=== PATIENT | female | born 1960 | race Caucasian/White ===

== ENCOUNTER → 2016-10-18 | Outpatient (CLI) | payer BC ==
[2016-10-18 07:19] LABS: ABSOLUTE BASOPHILS # (AUTO) 0.1 10^3/uL (0.0-0.2); ABSOLUTE EOSINOPHILS # (AUTO) 0.2 10^3/uL (0.0-0.6); ABSOLUTE LYMPHOCYTES (AUTO) 1.5 10^3/uL (0.5-4.7); ABSOLUTE MONOCYTES (AUTO) 0.4 10^3/uL (0.1-1.4); ABSOLUTE NEUT (AUTO) 2.6 10^3/uL (1.7-8.2); EOSINOPHILS % (AUTO) 3.8 % (0-6); HEMATOCRIT 40.3 % (36.0-47.0); HEMOGLOBIN 14.1 g/dL (12.0-15.5); LYMPHOCYTES % (AUTO) 31.6 % (13-45); MEAN CORPUSCULAR HEMOGLOBIN 33.6 pg (27.0-33.4); MEAN CORPUSCULAR HGB CONC 35.1 g/dL (32.0-36.0); MEAN CORPUSCULAR VOLUME 96 fl (80-97); MONOCYTES % (AUTO) 8.5 % (3-13); RED CELL DISTRIBUTION WIDTH 12.1 % (11.5-14.0); SEGMENTED NEUTROPHILS % (AUTO) 54.1 % (42-78); WHITE BLOOD COUNT 4.7 10^3/uL (4.0-10.5)
[2016-10-18 07:42] LABS: ALANINE AMINOTRANSFERASE 39 U/L (9-52); ALBUMIN 4.5 g/dL (3.5-5.0); ALKALINE PHOSPHATASE 110 U/L (38-126); ANION GAP 12 (5-19); ASPARTATE AMINO TRANSFERASE 30 U/L (14-36); BILIRUBIN,DIRECT 0.2 mg/dL (0.0-0.4); BILIRUBIN,TOTAL 0.7 mg/dL (0.2-1.3); BLOOD UREA NITROGEN 17 mg/dL (7-20); CALCIUM 9.4 mg/dL (8.4-10.2); CARBON DIOXIDE 28 mmol/L (22-30); CHLORIDE 103 mmol/L (98-107); CHOLESTEROL 176.67 mg/dL (0-200); CREATININE RESULT 0.77 mg/dL (0.52-1.25); Direct HDL 73 mg/dL (>40); GLUCOSE 88 mg/dL (75-110); POTASSIUM 4.1 mmol/L (3.6-5.0); SODIUM 142.6 mmol/L (137-145); TOTAL PROTEIN 7.6 g/dL (6.3-8.2); TRIGLYCERIDES 70 mg/dL (<150)
[2016-10-18 07:54] LABS: DIRECT LDL 83 mg/dL (<100)
== END ==
LOC: LAB 07:08
PROVIDERS: ATTEND Physician Assistant
DX: Z00.00 Encounter for general adult medical examination without abnormal findings (principal)
CPT/HCPCS: 36415; 80053; 80061; 85025

== ENCOUNTER 2017-04-26 13:55 | Emergency (ER) | payer BC ==
--- NOTE | 2017-04-26 15:22 | ER Document Report ---
ED Medical Screen (RME) - General Chief Complaint: Abdominal Pain Stated Complaint: ABDOMINAL PAIN Time Seen by Provider: 04/26/17 15:15 Notes: Patient is a 57 year old female who presents with epigastric burning, dull ache that is constant radiating across her upper abdomen. Admits to nausea on monday. Improved after two bowels movements on Monday, this happened twice. Complete relief. States it gets worse after eating still has her gall bladder I have greeted and performed a rapid initial assessment of this patient. A comprehensive ED assessment and evaluation of the patient, analysis of test results and completion of the medical decision making process will be conducted by additional ED providers. TRAVEL OUTSIDE OF THE [place] IN LAST 30 DAYS: No - Related Data Allergies/Adverse Reactions: meperidine HCl [From Demerol] Allergy (Mild, Verified 04/26/17 15:15) VOMITING Past Medical History - Past Medical History Cardiac Medical History: Denies: Hx Heart Attack, Hx Hypertension Pulmonary Medical History: Denies: Hx Asthma Neurological Medical History: Denies: Hx Cerebrovascular Accident, Hx Seizures GI Medical History: Denies: Hx Hepatitis, Hx Hiatal Hernia, Hx Ulcer Infectious Medical History: Denies: Hx Hepatitis Past Surgical History: Denies: Hx Hysterectomy, Hx Mastectomy, Hx Open Heart Surgery, Hx Pacemaker Physical Exam - Vital signs Vitals: Temp Pulse Resp BP Pulse Ox 98.8 F 98 18 140/79 H 98 04/26/17 14:04 04/26/17 14:04 04/26/17 14:04 04/26/17 14:04 04/26/17 14:04 - Notes Notes: PHYSICAL EXAM GENERAL: Alert, interacts well. HEAD: Normocephalic, atraumatic. LUNGS: Clear to auscultation bilaterally, no wheezes, rales, or rhonchi. No respiratory distress. HEART: Regular rate and rhythm. No murmurs, gallops, or rubs. ABDOMEN: Soft, nondistended, epigastric tenderness. No guarding, rebound, or rigidity.. Bowel sounds present in all 4 quadrants. NEUROLOGICAL: Alert and oriented x4. Normal speech. PSYCH: Normal affect, normal mood. SKIN: Warm, dry, normal turgor. No rashes or lesions noted. Course - Vital Signs Vital signs: Temp Pulse Resp BP Pulse Ox 98.8 F 98 18 140/79 H 98 04/26/17 14:04 04/26/17 14:04 04/26/17 14:04 04/26/17 14:04 04/26/17 14:04
[2017-04-26] MEDS ORDERED: LIDOCAINE 2% VISCOUS SOLN 20 ML UDCUP PO ONE (15:23)
[2017-04-26] MEDS ORDERED: MAG HYDROX/AL HYDROX/SIMETH SUSP 30 ML UDCUP PO ONE (15:23)
[2017-04-26] MEDS ORDERED: METOCLOPRAMIDE HCL ORAL SOLN 10 MG/10 ML UDCUP PO ONE (15:23)
[2017-04-26 15:45] LABS: ABSOLUTE BASOPHILS # (AUTO) 0.1 10^3/uL (0.0-0.2); ABSOLUTE EOSINOPHILS # (AUTO) 0.2 10^3/uL (0.0-0.6); ABSOLUTE LYMPHOCYTES (AUTO) 1.1 10^3/uL (0.5-4.7); ABSOLUTE MONOCYTES (AUTO) 0.6 10^3/uL (0.1-1.4); ABSOLUTE NEUT (AUTO) 3.2 10^3/uL (1.7-8.2); BASOPHILS % (AUTO) 1.1 % (0-2); HEMOGLOBIN 13.3 g/dL (12.0-15.5); LYMPHOCYTES % (AUTO) 22.2 % (13-45); MEAN CORPUSCULAR HGB CONC 33.2 g/dL (32.0-36.0); MEAN CORPUSCULAR VOLUME 96 fl (80-97); MONOCYTES % (AUTO) 11.1 % (3-13); PLATELET COUNT 227 10^3/uL (150-450); RED BLOOD COUNT 4.16 10^6/uL (3.72-5.28); RED CELL DISTRIBUTION WIDTH 12.1 % (11.5-14.0); SEGMENTED NEUTROPHILS % (AUTO) 62.6 % (42-78); TOTAL CELLS COUNTED % (AUTO) 100 %; WHITE BLOOD COUNT 5.2 10^3/uL (4.0-10.5)
[2017-04-26 15:50] LABS: APPEARANCE,URINE CLEAR; BILIRUBIN,URINE NEGATIVE (NEGATIVE); COLOR,URINE YELLOW; GLUCOSE, URINE NEGATIVE (NEGATIVE); KETONES,URINE NEGATIVE (NEGATIVE); LEUKOCYTE ESTERASE,URINE NEGATIVE (NEGATIVE); NITRITE,URINE NEGATIVE (NEGATIVE); PROTEIN,URINE NEGATIVE (NEGATIVE); UROBILINOGEN,URINE NEGATIVE mg/dL (<2.0)
[2017-04-26 16:06] LABS: ALANINE AMINOTRANSFERASE 341 U/L (9-52); ALBUMIN 4.6 g/dL (3.5-5.0); ALKALINE PHOSPHATASE 159 U/L (38-126); ANION GAP 13 (5-19); ASPARTATE AMINO TRANSFERASE 114 U/L (14-36); BILIRUBIN,DIRECT 0.1 mg/dL (0.0-0.4); BILIRUBIN,TOTAL 0.4 mg/dL (0.2-1.3); BLOOD UREA NITROGEN 17 mg/dL (7-20); CARBON DIOXIDE 29 mmol/L (22-30); CHLORIDE 102 mmol/L (98-107); GLUCOSE 112 mg/dL (75-110); LIPASE 142.5 U/L (23-300); POTASSIUM 4.2 mmol/L (3.6-5.0); SODIUM 144.1 mmol/L (137-145); TOTAL PROTEIN 7.2 g/dL (6.3-8.2)
--- NOTE | 2017-04-26 17:28 | RADIOLOGY REPORT (SQ) ---
EXAM DESCRIPTION: U/S ABDOMEN LIMITED W/O DOP COMPLETED DATE/TIME: 04/26/2017 5:14 pm REASON FOR STUDY: RUQ pain, elevated LFTS COMPARISON: None. TECHNIQUE: Dynamic and static grayscale images acquired of the abdomen and recorded on PACS. Additio nal selected color Doppler and spectral images recorded. LIMITATIONS: None. FINDINGS: PANCREAS: A complex mass is identified at the level of the pancreatic head measuring 2.4 x 2.8 x 2.7 cm in diameters. The possibility of a pancreatic neoplasm cannot be excluded. CT may be of value for further evaluation. LIVER: No masses. Echotexture normal. LIVER VASCULATURE: Normal blood flow is identified in the portal vein. GALLBLADDER: No stones. Normal wall thickness. No pericholecystic fluid. ULTRASOUND-DETECTED CROCKETT'S SIGN: Negative. INTRAHEPATIC DUCTS AND COMMON DUCT: No dilated intrahepatic bile ducts are identified. The common bi le duct is at the upper limits of normal in size. AORTA: No aneurysm. RIGHT KIDNEY: Normal size. Normal echogenicity. No solid or suspicious masses. No hydronephrosis. No calcifications. PERITONEAL AND RIGHT PLEURAL SPACE: No ascites or effusions. OTHER: No other significant findings. IMPRESSION: Complex mass is identified at the level the pancreatic head as noted above. The possibi lity of a pancreatic neoplasm cannot be excluded. CT may be of value for further evaluation. Other findings as noted above TECHNICAL DOCUMENTATION: JOB ID: [id number] [employer]- All Rights Reserved
--- NOTE | 2017-04-26 18:52 | RADIOLOGY REPORT (SQ) ---
EXAM DESCRIPTION: CT ABD/PELVIS WITH IV ONLY COMPLETED DATE/TIME: 04/26/2017 6:36 pm REASON FOR STUDY: possible pancreatic head mass COMPARISON: Abdominal ultrasound dated 04/26/2017 TECHNIQUE: CT scan of the abdomen and pelvis performed using helical scanning technique with dynamic intravenous contrast injection. No oral contrast. Images reviewed with lung, soft tissue, and bone windows. Reconstructed coronal and sagittal MPR images reviewed. Delayed images for evaluation of the urinary system also acquired. All images stored on PACS. All CT scanners at this facility use dose modulation, iterative reconstruction, and/or weight based d osing when appropriate to reduce radiation dose to as low as reasonably achievable (ALARA). [facility]: Dose Right [facility]: CareDose [facility]: Dose Right [facility]: Teradose 4D [facility]: Linkfluence CONTRAST TYPE AND DOSE: contrast/concentration: Isovue 370.00 mg/ml; Total Contrast Delivered: 58.0 ml; Total Saline Delivered: 40.0 ml RENAL FUNCTION: Creatinine 0.72 RADIATION DOSE: CT Rad equipment meets quality standard of care and radiation dose reduction techniq ues were employed. CTDIvol: 4.8 - 5.2 mGy. DLP: 473 mGy-cm.. LIMITATIONS: None. FINDINGS: LOWER CHEST: No significant findings. No nodules or infiltrates. LIVER: Normal size. Somewhat ill-defined relatively low density mass is identified in the right lobe of the liver inferiorly measuring 4.3 x 2.5 cm in diameter suspicious for metastatic disease. Eft d ilated intrahepatic bile ducts are identified and there is dilatation of the common bile duct. SPLEEN: Normal size. No focal lesions. PANCREAS: A relative low density mass is identified in the pancreatic head measuring 2.5 x 3.0 cm in diameter suspicious for a pancreatic neoplasm. There is loss of the adjacent peripancreatic fat plan es. No significant calcifications. No adjacent inflammation or peripancreatic fluid collections. Th ere is some prominence of the pancreatic duct in the pancreatic body and tail. GALLBLADDER: No identified stones by CT criteria. There is some distention of the gallbladder. No i nflammatory changes to suggest cholecystitis. ADRENAL GLANDS: No significant masses or asymmetry. RIGHT KIDNEY AND URETER: No solid masses. No significant calcifications. No hydronephrosis or hyd roureter. LEFT KIDNEY AND URETER: No solid masses. No significant calcifications. No hydronephrosis or hydr oureter. AORTA AND VESSELS: No aneurysm. No dissection. Renal arteries, SMA, celiac without stenosis. RETROPERITONEUM: No retroperitoneal adenopathy, hemorrhage or masses. BOWEL AND PERITONEAL CAVITY: No masses or inflammatory changes. No free fluid or peritoneal masses. APPENDIX: Not identified PELVIS: No mass. No free fluid. Normal bladder. ABDOMINAL WALL: No masses. No hernias. BONES: No significant or acute findings. OTHER: No other significant finding. IMPRESSION: Pancreatic head mass suspicious for a pancreatic neoplasm. Somewhat ill-defined relativ e low density mass in the right lobe of the liver suspicious for metastatic disease. Dilated intrahe patic bile ducts. There is some dilatation of the common bile duct as well as distention of the gall bladder. Other findings as noted above TECHNICAL DOCUMENTATION: JOB ID: [id number] Quality ID # [id number]: Final reports with documentation of one or more dose reduction techniques (e.g., Au tomated exposure control, adjustment of the mA and/or kV according to patient size, use of iterative reconstruction technique) 2010 [employer]- All Rights Reserved
--- NOTE | 2017-04-26 20:06 | ER Document Report ---
ED General - General Chief Complaint: Abdominal Pain Stated Complaint: ABDOMINAL PAIN Time Seen by Provider: 04/26/17 15:15 TRAVEL OUTSIDE OF THE [place] IN LAST 30 DAYS: No - HPI Patient complains to provider of: Abdominal pain Onset: Other - 3 Weeks ago Associated symptoms: None Exacerbated by: Denies Relieved by: Denies Similar symptoms previously: No Recently seen / treated by doctor: No Notes: She states she has had dull abdominal pain in the midsection of the abdomen for 3 weeks. She states that it has been intermittent and associated with nausea but no vomiting. Patient denies any acute weight change. She states she has had 5 loose stools in the last 5 hours. History of abdominal surgeries. - Related Data Allergies/Adverse Reactions: meperidine HCl [From Demerol] Allergy (Mild, Verified 04/26/17 15:15) VOMITING Past Medical History - General Information source: Patient - Social History Smoking Status: Never Smoker Chew tobacco use (# tins/day): No Frequency of alcohol use: Social Drug Abuse: None Lives with: Family, Spouse/Significant other Family History: Reviewed & Not Pertinent Patient has suicidal ideation: No Patient has homicidal ideation: No - Past Medical History Cardiac Medical History: Reports: None Denies: Hx Heart Attack, Hx Hypertension Pulmonary Medical History: Denies: Hx Asthma Neurological Medical History: Denies: Hx Cerebrovascular Accident, Hx Seizures Endocrine Medical History: Reports: None Renal/ Medical History: Reports: None. Denies: Hx Peritoneal Dialysis Malignancy Medical History: Reports: None GI Medical History: Reports: None. Denies: Hx Hepatitis, Hx Hiatal Hernia, Hx Ulcer Musculoskeltal Medical History: Reports None Psychiatric Medical History: Reports: None Traumatic Medical History: Reports: None Infectious Medical History: Reports: None. Denies: Hx Hepatitis Past Surgical History: Reports: None. Denies: Hx Hysterectomy, Hx Mastectomy, Hx Open Heart Surgery, Hx Pacemaker Review of Systems - Review of Systems Constitutional: No symptoms reported EENT: No symptoms reported Cardiovascular: No symptoms reported Respiratory: No symptoms reported Gastrointestinal: See HPI Genitourinary: No symptoms reported Female Genitourinary: No symptoms reported Musculoskeletal: No symptoms reported Skin: No symptoms reported Hematologic/Lymphatic: No symptoms reported Neurological/Psychological: No symptoms reported Physical Exam - Vital signs Vitals: Temp Pulse Resp BP Pulse Ox 98.8 F 98 18 140/79 H 98 04/26/17 14:04 04/26/17 14:04 04/26/17 14:04 04/26/17 14:04 04/26/17 14:04 - Notes Notes: PHYSICAL EXAMINATION: GENERAL: Well-appearing, well-nourished and in no acute distress. HEAD: Atraumatic, normocephalic. EYES: Pupils equal round and reactive to light, extraocular movements intact, conjunctiva are normal. ENT: Nares patent, oropharynx clear without exudates. Moist mucous membranes. NECK: Normal range of motion, supple without lymphadenopathy LUNGS: Breath sounds clear to auscultation bilaterally and equal. No wheezes rales or rhonchi. HEART: Regular rate and rhythm without murmurs ABDOMEN: Soft, nontender, nondistended abdomen. No guarding, no rebound. No masses appreciated. Female : deferred Musculoskeletal: Normal range of motion, no pitting or edema. No cyanosis. NEUROLOGICAL: Cranial nerves grossly intact. Normal speech, normal gait. Normal sensory, motor exams PSYCH: Normal mood, normal affect. SKIN: Warm, Dry, normal turgor, no rashes or lesions noted. Course - Re-evaluation Re-evalutation: 04/26/17 20:01 Did do an incidental with the patient. I went over the findings of the ultrasound and the CAT scan with her. I did tell her that she will need follow- up with the multiple different physicians. I did try and [facility] but they were not able to be reached. There was an answering machine only. She did ask me to call her Jalen and I did. I did go over the results again with him. I told him that the patient does have a mass at her pancreatic head and this could be consistent with cancer although I am not definitively sure. I told him that he needed to follow -up with the primary medical doctor tomorrow as well as gastroenterology and surgery. I did tell the patient and her at their asking that going to you and see would be reasonable. stated that perhaps he will go to [place]. I did tell him that the choices there is. Copies of CT and ultrasound were given to the patient as well as the lab results. 04/26/17 20:17 Go back in the room and spent some extra time with the patient. I told her that I called her primary medical doctor but they did not answer. I stated I call first thing in the morning. I did give her a week off from work so she get things started. Did state her is preop tomorrow for arthroscopic knee surgery next week by Dr. Reese. 04/28/17 00:38 Abdomen Ultrasound 04/26/17 16:20 IMPRESSION: Complex mass is identified at the level the pancreatic head as noted above. The possibility of a pancreatic neoplasm cannot be excluded. CT may be of value for further evaluation. Other findings as noted above Abdomen/Pelvis CT 04/26/17 17:38 IMPRESSION: Pancreatic head mass suspicious for a pancreatic neoplasm. Somewhat ill-defined relative low density mass in the right lobe of the liver suspicious for metastatic disease. Dilated intrahepatic bile ducts. There is some dilatation of the common bile duct as well as distention of the gallbladder. Other findings as noted above 04/28/17 00:38 I did call the patient on April 27 at approximately 1145. I spoke with her Jalen. He stated that they did have an appointment with GI Dr. Saenz 2 PM - Vital Signs Vital signs: Temp Pulse Resp BP Pulse Ox 98.0 F 98 17 145/79 H 99 04/26/17 20:05 04/26/17 20:05 04/26/17 20:05 04/26/17 20:05 04/26/17 20:05 - Laboratory Result Diagrams: 04/26/17 15:30 04/26/17 15:30 Laboratory results interpreted by me: 04/26/17 04/26/17 15:30 15:30 Glucose 112 H AST 114 H ALT 341 H Alkaline Phosphatase 159 H Urine Ascorbic Acid 40 H Discharge - Discharge Clinical Impression: Pancreatic mass Condition: Serious Disposition: HOME, SELF-CARE Instructions: Growth or Mass, Pending Workup ([facility]) Additional Instructions: Follow up with your physician tomorrow for further care or return to the ED IMMEDIATELY if symptoms worsen or new concerns occur. If you cannot afford to follow up with your primary care physician a list of low cost clinics have been provided at the end of your discharge papers as well. Please call your primary medical doctor first thing in the morning for follow- up tomorrow. Prescriptions: Ondansetron [Zofran Odt 4 mg Tablet] 1 - 2 tab PO Q4H PRN #15 tab.rapdis PRN Reason: For Nausea/Vomiting Forms: Return to Work
[2017-04-26 20:12] VITALS: BP 145/79
== END 2017-04-26 20:26 | disposition home or self-care (01) ==
LOC: ER 13:55
DX: K86.9 Disease of pancreas, unspecified (principal); R10.13 Epigastric pain; R11.0 Nausea; R19.7 Diarrhea, unspecified
CPT/HCPCS: 99284; 36415; 83690; 85025; 80053; 81001; 76705; 74177; J3490

== ENCOUNTER → 2017-05-02 | Outpatient (CLI) | payer BC ==
--- NOTE | 2017-05-03 10:21 | RADIOLOGY REPORT (SQ) ---
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 RADIONUCLIDE AND DOSE: 11.7 mCi F18 FDG The route of agent administration: Intravenous FASTING BLOOD SUGAR: 96 mg/dl CONTRAST TYPE AND DOSE: No CT contrast given. TECHNIQUE: Blood glucose level was verified. Above dose of FDG was injected intravenously. 2-D seg mented attenuation correction images were obtained from the base of the skull to the midthighs. Nonc ontrast CT images were obtained for attenuation correction and fusion with emission images. CT image s were performed without oral or intravenous contrast and are not sensitive for parenchymal lesions. A series of overlapping emission PET images were obtained. [facility] by the radiologist. Images stored on PACS. LIMITATIONS: None. FINDINGS: HEAD AND NECK: No areas of abnormal metabolic activity in the soft tissues of the head and neck. CHEST: No areas of abnormal metabolic activity in the chest. ABDOMEN AND PELVIS: Hypermetabolic pancreatic head mass measuring about 7.1 SUV. Hypermetabolic segm ent 5 liver lesion measures 8.1 SUV. PROXIMAL LOWER EXTREMITIES: No areas of abnormal metabolic activity in the soft tissues of the lower extremities. BONES: No abnormal metabolic activity in the visualized skeleton. ADDITIONAL CT FINDINGS: See recent CT abdomen pelvis. No additional CT findings in the chest. OTHER: No other significant findings. IMPRESSION: Hypermetabolic pancreatic head mass. Hypermetabolic liver metastasis. TECHNICAL DOCUMENTATION: JOB ID: [id number] [employer]- All Rights Reserved
== END ==
LOC: RAD 18:04
PROVIDERS: ATTEND Internal Medicine
DX: C25.0 Malignant neoplasm of head of pancreas (principal); C78.7 Secondary malignant neoplasm of liver and intrahepatic bile duct
CPT/HCPCS: 78815; A9552

== ENCOUNTER 2017-05-04 08:04 | Day surgery (SDC) | payer BC ==
[2017-05-04 09:33] LABS: HEMATOCRIT 40.6 % (36.0-47.0); HEMOGLOBIN 13.7 g/dL (12.0-15.5); MEAN CORPUSCULAR HEMOGLOBIN 32.7 pg (27.0-33.4); MEAN CORPUSCULAR HGB CONC 33.9 g/dL (32.0-36.0); MEAN CORPUSCULAR VOLUME 97 fl (80-97); PLATELET COUNT 207 10^3/uL (150-450); RED CELL DISTRIBUTION WIDTH 12.1 % (11.5-14.0); WHITE BLOOD COUNT 5.7 10^3/uL (4.0-10.5)
[2017-05-04 09:37] LABS: INTERNATIONAL RATION (INR) 0.92; PARTIAL THROMBOPLASTIN TIME 30.6 SEC (23.5-35.8)
[2017-05-04 09:53] LABS: BLOOD UREA NITROGEN 16 mg/dL (7-20)
[2017-05-04] MEDS ORDERED: MIDAZOLAM 2 MG/2 ML INJ ONE (11:29)
[2017-05-04] MEDS ORDERED: FENTANYL CITRATE INJ/PF 100 MCG/2 ML AMPUL ONE (11:29)
[2017-05-04] MEDS ORDERED: LIDOCAINE 1% INJ-PF (10 MG/ML) 30 ML SDV ONE (11:36)
--- NOTE | 2017-05-04 12:52 | RADIOLOGY REPORT (SQ) ---
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 TECHNIQUE: After obtaining informed consent, the patient was brought to the CT suite and was placed supine on the CT gurney. The patient was prepped and draped in the usual sterile fashion . Axial petra ges were obtained for targeting of thesegment 5 lesion. An appropriate access site was selected. IV s edation was administered and physician direction by the registered nurse using 1.5 milligrams of Vers ed and 75 micrograms of fentanyl. Physiologic monitoring was provided before, during, and after sedat ion. The total sedation time was 54 minutes. Documentation face to face time, the performing proceduralist, spent monitoring the patient: 5minutes . Noncontrasted CT of the liver was performed to localize an approach for the right liver biopsy. A p ercutaneous site was marked. Time out was performed. After skin prep and local lidocaine for skin and deep tissue anesthesia, a coaxial biopsy needle sys tem was used to obtain several cores of tissue from the segment 5 lesion in the liver. These were joiner bmitted to the lab in formalin. Biopsy tract was embolized with a Gelfoam plug. No immediate postpr ocedure complications. Total of [address] fluoro was used. All CT scanners at this facility use dose modulation, iterative reconstruction, and/or weight based d osing when appropriate to reduce radiation dose to as low as reasonably achievable (ALARA). [facility]: Dose Right [facility]: CareDose [facility]: Dose Right [facility]: Teradose 4D [facility]: [employer] RADIATION DOSE: CT Rad equipment meets quality standard of care and radiation dose reduction techniq ues were employed. CTDIvol: 4.9 mGy. DLP: 99 mGy-cm. mGy. LIMITATIONS: None. FINDINGS: CT guided liver biopsy as detailed above. IMPRESSION: CT GUIDED SEGMENT 5 LIVER BIOPSY PERFORMED ABOVE. PATHOLOGY PENDING. NO IMMEDIATE COMPLICATIONS. COMMENT: Patient medication list reviewed:Yes- Quality ID# [id number]:Eligible professional attests to docu menting in the medical record they obtained, updated, or reviewed the patient's current medications.. Quality ID 145: Final reports for procedures using fluoroscopy that document radiation exposure oral christos, or exposure time and number of fluorographic images (if radiation exposure indices are not avail able) TECHNICAL DOCUMENTATION: JOB ID: [id number] Quality ID # 436: Final reports with documentation of one or more dose reduction techniques (e.g., A utomated exposure control, adjustment of the mA and/or kV according to patient size, use of iterative reconstruction technique) 2010 [employer]- All Rights Reserved
[2017-05-04] MEDS ORDERED: TRAMADOL HCL 50 MG TABLET PO PRN (13:52)
[2017-05-04 14:53] VITALS: BP 106/56
== END 2017-05-04 14:45 | disposition home or self-care (01) ==
LOC: RAD 08:04
PROVIDERS: ATTEND Internal Medicine
PROC: 0FB13ZX Excision of Right Lobe Liver, Percutaneous Approach, Diagnostic (ICD-10-PCS; principal; 2017-05-04)
DX: C78.7 Secondary malignant neoplasm of liver and intrahepatic bile duct (principal); C25.0 Malignant neoplasm of head of pancreas; G89.3 Neoplasm related pain (acute) (chronic); Z88.5 Allergy status to narcotic agent; Z79.899 Other long term (current) drug therapy; Z87.891 Personal history of nicotine dependence
CPT/HCPCS: 36415; 84520; 82565; 85027; 85610; 85730; 88342 ×2; 88341 ×2; 88305 ×2; 77012; 47000; J2250; J3010; J3490

== ENCOUNTER 2017-05-25 09:00 | Outpatient (CLI) | payer BC ==
[~2017-05-25 09:00] MED LIST: NORMAL SALINE 1000 ML 1,000 ML IV PRN
[2017-05-25 09:47] VITALS: BP 119/67
== END 2017-05-25 10:38 | disposition home or self-care (01) ==
LOC: II 09:00 → 5TH 09:03 → II 10:38
PROVIDERS: ATTEND Internal Medicine
PROC: 3E0337Z Introduction of Electrolytic and Water Balance Substance into Peripheral Vein, Percutaneous Approach (ICD-10-PCS; principal; 2017-05-25)
DX: E86.0 Dehydration (principal); C25.0 Malignant neoplasm of head of pancreas
CPT/HCPCS: 96360

== ENCOUNTER 2017-05-26 09:03 | Outpatient (CLI) | payer BC ==
[2017-05-26] MEDS ORDERED: NORMAL SALINE 1000 ML 1,000 ML IV PRN (09:13)
[2017-05-26 09:46] VITALS: BP 100/53
== END 2017-05-26 10:54 | disposition home or self-care (01) ==
LOC: II 09:03 → 5TH 09:10 → II 10:54
PROVIDERS: ATTEND Internal Medicine
PROC: 3E0337Z Introduction of Electrolytic and Water Balance Substance into Peripheral Vein, Percutaneous Approach (ICD-10-PCS; principal; 2017-05-26)
DX: E86.0 Dehydration (principal); C25.0 Malignant neoplasm of head of pancreas
CPT/HCPCS: 96360

== ENCOUNTER 2017-05-31 09:07 | Outpatient (CLI) | payer BC ==
[2017-05-31 12:32] VITALS: BP 113/62
== END 2017-05-31 11:05 | disposition home or self-care (01) ==
LOC: II 09:07
PROVIDERS: ATTEND Internal Medicine
PROC: 3E0337Z Introduction of Electrolytic and Water Balance Substance into Peripheral Vein, Percutaneous Approach (ICD-10-PCS; principal; 2017-05-31)
DX: E86.0 Dehydration (principal); C25.0 Malignant neoplasm of head of pancreas
CPT/HCPCS: 96360

== ENCOUNTER 2017-06-02 10:16 | Outpatient (CLI) | payer BC ==
[2017-06-02 10:38] VITALS: BP 112/67
== END 2017-06-02 11:59 | disposition home or self-care (01) ==
LOC: II 10:16
PROVIDERS: ATTEND Internal Medicine
PROC: 3E0337Z Introduction of Electrolytic and Water Balance Substance into Peripheral Vein, Percutaneous Approach (ICD-10-PCS; principal; 2017-06-02)
DX: E86.0 Dehydration (principal); C25.0 Malignant neoplasm of head of pancreas
CPT/HCPCS: 96360

== ENCOUNTER 2017-06-16 10:02 | Outpatient (CLI) | payer BC ==
[2017-06-16 10:23] VITALS: BP 104/66
[2017-06-16] MEDS ORDERED: LORAZEPAM INJ 2 MG/1 ML VIAL IV ONE (11:00)
== END 2017-06-16 11:30 | disposition home or self-care (01) ==
LOC: II 10:02 → 5TH 10:03 → II 11:30
PROVIDERS: ATTEND Internal Medicine
PROC: 3E0337Z Introduction of Electrolytic and Water Balance Substance into Peripheral Vein, Percutaneous Approach (ICD-10-PCS; principal; 2017-06-16)
PROC: 3E033GC Introduction of Other Therapeutic Substance into Peripheral Vein, Percutaneous Approach (ICD-10-PCS; 2017-06-16)
DX: E86.0 Dehydration (principal); C25.0 Malignant neoplasm of head of pancreas
CPT/HCPCS: 96374; 96375; 96361; J2060; 96360

== ENCOUNTER 2017-06-21 09:56 | Outpatient (CLI) | payer BC ==
[2017-06-21 12:50] VITALS: BP 98/56
== END 2017-06-21 11:36 | disposition home or self-care (01) ==
LOC: II 09:56 → 5TH 09:56 → II 11:36
PROVIDERS: ATTEND Internal Medicine
PROC: 3E0337Z Introduction of Electrolytic and Water Balance Substance into Peripheral Vein, Percutaneous Approach (ICD-10-PCS; principal; 2017-06-21)
DX: E86.0 Dehydration (principal); C25.0 Malignant neoplasm of head of pancreas
CPT/HCPCS: 96360

== ENCOUNTER 2017-06-23 10:13 | Outpatient (CLI) | payer BC ==
[2017-06-23 11:06] VITALS: BP 94/66
== END 2017-06-23 12:15 | disposition home or self-care (01) ==
LOC: II 10:13 → 5TH 10:24 → II 12:15
PROVIDERS: ATTEND Internal Medicine
PROC: 3E0337Z Introduction of Electrolytic and Water Balance Substance into Peripheral Vein, Percutaneous Approach (ICD-10-PCS; principal; 2017-06-23)
DX: E86.0 Dehydration (principal); C25.0 Malignant neoplasm of head of pancreas
CPT/HCPCS: 96360

== ENCOUNTER → 2017-06-29 | Outpatient (CLI) | payer BC ==
--- NOTE | 2017-06-29 10:55 | RADIOLOGY REPORT (SQ) ---
EXAM DESCRIPTION: CT CHEST WITH; CT ABD/PELVIS WITH IV ORAL COMPLETED DATE/TIME: 06/29/2017 9:08 am REASON FOR STUDY: PANCREATIC CA (C25.0) C25.0 MALIGNANT NEOPLASM OF HEAD OF PANCREAS COMPARISON: 05/04/[address]-guided 05/02/2017 PET-CT 04/26/2017 CT abdomen and pelvis CONTRAST TYPE AND DOSE: contrast/concentration: Isovue 370.00 mg/ml; Total Contrast Delivered: 49.0 ml; Total Saline Delivered: 65.0 ml RENAL FUNCTION: Creatinine 0.5 TECHNIQUE: CT scan of the chest performed using helical scanning technique with dynamic intravenous contrast injection. Images reviewed with lung, soft tissue and bone windows. Reconstructed coronal a nd sagittal MPR images reviewed. All images stored on PACS. CT scan of the abdomen and pelvis performed with intravenous and with oral contrastusing helical scan satnam technique with dynamic intravenous contrast injection. Images reviewed with lung, soft tissue a nd bone windows. Reconstructed coronal and sagittal MPR images reviewed. Delayed images for evaluat ion of the urinary system also acquired and evaluated. All images stored on PACS. All CT scanners at this facility use dose modulation, iterative reconstruction, and/or weight based d osing when appropriate to reduce radiation dose to as low as reasonably achievable (ALARA). [facility]: Dose Right [facility]: CareDose [facility]: Dose Right [facility]: Teradose 4D [facility]: [employer] RADIATION DOSE: CT Rad equipment meets quality standard of care and radiation dose reduction techniq ues were employed. CTDIvol: 4.4 - 4.5 mGy. DLP: 600 mGy-cm. . LIMITATIONS: None. FINDINGS: CHEST: LUNGS AND PLEURA: No acute infiltrates. No pleural effusion. No pneumothorax. For 5 mm noncalcifie d granuloma left posterior lung base unchanged from PET-CT 05/02/2017. HILAR AND MEDIASTINAL STRUCTURES: No identified masses or abnormal nodes. HEART AND VASCULAR STRUCTURES: No aneurysm or dissection. No central pulmonary emboli. No pericardi al effusion. HARDWARE: None. THYROID AND OTHER SOFT TISSUES: No masses. No adenopathy. BONES: No significant finding. OTHER: No other significant finding. ABDOMEN AND PELVIS: LIVER: Slight increase in size of the metastatic liver lesion since 05/02/2017 and 04/26/2017. Currentl y this measures 4.7 x 3 cm in size on axial image 29 (was 4.3 x 2.5 cm on 04/26/2017). There is progression of intra hepatic biliary ductal dilatation, and progressive dilatation of the co mmon hepatic duct compared to prior studies. Gallbladder is now distended, 10 cm in length. There is a 3 to 4 cm long segment of high-grade common bile duct stenosis due to pancreatic head tumo r, best shown on coronal images 23-28. SPLEEN: Normal size. No focal lesions. PANCREAS: The pancreatic head mass is stable in size compared to April 2017, currently measuring 3 x 2.5 cm in size. No pancreatic ductal dilatation or peripancreatic fluid/inflammation. GALLBLADDER: No identified stones by CT criteria. No inflammatory changes to suggest cholecystitis. ADRENAL GLANDS: No significant masses or asymmetry. RIGHT KIDNEY AND URETER: No solid masses. No significant calcification. No hydronephrosis or hydroure ter. LEFT KIDNEY AND URETER: No solid masses. No significant calcification. No hydronephrosis or hydrouret er. AORTA AND VESSELS: No aneurysm. No dissection. Renal arteries, SMA, celiac without stenosis. RETROPERITONEUM: No retroperitoneal adenopathy, hemorrhage or masses. BOWEL AND PERITONEAL CAVITY: No masses or inflammatory changes. No free fluid or peritoneal masses. APPENDIX: Normal. ABDOMINAL WALL: No masses. No hernias. PELVIS: No mass or free fluid. Normal bladder. BONES: No significant or acute findings. OTHER: No other significant finding. IMPRESSION: Although the primary pancreatic head nodule is similar in size compared to studies from April 2017, there has been progressive dilatation of the intrahepatic bile ducts, common hepatic d uct, and gallbladder since prior exams. Slight increase in size of left lobe liver metastatic lesion compared to CT 06/25/[address] evidence of metastatic disease to the chest NORMAL CT OF THE ABDOMEN AND PELVIS WITH ORAL AND INTRAVENOUS CONTRAST. TECHNICAL DOCUMENTATION: JOB ID: [id number] Quality ID # 436: Final reports with documentation of one or more dose reduction techniques (e.g., Au tomated exposure control, adjustment of the mA and/or kV according to patient size, use of iterative reconstruction technique) 2010 [employer]- All Rights Reserved Reading location - IP/workstation name: [email or web address] [id number]
== END ==
LOC: RAD 08:32
PROVIDERS: ATTEND Internal Medicine
DX: C25.0 Malignant neoplasm of head of pancreas (principal); C78.7 Secondary malignant neoplasm of liver and intrahepatic bile duct
CPT/HCPCS: 71260; 74177

== ENCOUNTER 2017-07-05 10:06 | Outpatient (CLI) | payer BC ==
[2017-07-05 10:36] VITALS: BP 100/50
== END 2017-07-05 12:17 | disposition home or self-care (01) ==
LOC: II 10:06 → 5TH 10:12 → II 12:17
PROVIDERS: ATTEND Internal Medicine
PROC: 3E0337Z Introduction of Electrolytic and Water Balance Substance into Peripheral Vein, Percutaneous Approach (ICD-10-PCS; principal; 2017-07-05)
DX: C25.0 Malignant neoplasm of head of pancreas (principal)
CPT/HCPCS: 96360

== ENCOUNTER 2017-07-07 10:03 | Outpatient (CLI) | payer BC ==
[2017-07-07 10:19] VITALS: BP 99/61
== END 2017-07-07 12:01 | disposition home or self-care (01) ==
LOC: II 10:03 → 5TH 10:17 → II 12:01
PROVIDERS: ATTEND Internal Medicine
PROC: 3E0337Z Introduction of Electrolytic and Water Balance Substance into Peripheral Vein, Percutaneous Approach (ICD-10-PCS; principal; 2017-07-07)
DX: E86.0 Dehydration (principal); C25.0 Malignant neoplasm of head of pancreas
CPT/HCPCS: 96360

== ENCOUNTER 2017-07-12 11:54 | Outpatient (CLI) | payer BC ==
[2017-07-12 12:32] VITALS: BP 82/52
== END 2017-07-12 13:38 | disposition home or self-care (01) ==
LOC: II 11:54 → 5TH 12:01 → II 13:38
PROVIDERS: ATTEND Internal Medicine
PROC: 3E0337Z Introduction of Electrolytic and Water Balance Substance into Peripheral Vein, Percutaneous Approach (ICD-10-PCS; principal; 2017-07-12)
DX: E86.0 Dehydration (principal); C25.0 Malignant neoplasm of head of pancreas
CPT/HCPCS: 96360

== ENCOUNTER 2017-07-14 10:00 | Outpatient (CLI) | payer BC ==
[2017-07-14 10:28] VITALS: BP 97/53
== END 2017-07-14 12:05 | disposition home or self-care (01) ==
LOC: II 10:00 → 5TH 10:04 → II 12:05
PROVIDERS: ATTEND Internal Medicine
PROC: 3E0337Z Introduction of Electrolytic and Water Balance Substance into Peripheral Vein, Percutaneous Approach (ICD-10-PCS; principal; 2017-07-14)
DX: E86.0 Dehydration (principal); C25.0 Malignant neoplasm of head of pancreas
CPT/HCPCS: 96360

== ENCOUNTER → 2017-08-10 | Outpatient (CLI) | payer BC ==
--- NOTE | 2017-08-10 11:49 | RADIOLOGY REPORT (SQ) ---
EXAM DESCRIPTION: CT CHEST WITH; CT ABD/PELVIS WITH IV ONLY COMPLETED DATE/TIME: 08/10/2017 9:34 am; 08/10/2017 9:35 am REASON FOR STUDY: MAL HEAD OF HEAD OF PANCREAS C25.0 MALIGNANT NEOPLASM OF HEAD OF PANCREAS COMPARISON: Abdominal ultrasound 04/26/2017 CT abdomen pelvis 04/26/2017 PET-CT 05/02/2017 CT chest abdomen pelvis 06/29/2017 CONTRAST TYPE AND DOSE: contrast/concentration: Isovue 370.00 mg/ml; Total Contrast Delivered: 46.0 ml; Total Saline Delivered: 65.0 ml RENAL FUNCTION: Creatinine 0.5 TECHNIQUE: CT scan of the chest performed using helical scanning technique with dynamic intravenous contrast injection. Images reviewed with lung, soft tissue and bone windows. Reconstructed coronal a nd sagittal MPR images reviewed. All images stored on PACS. CT scan of the abdomen and pelvis performed with intravenous and without oral contrastusing helical s cristina technique with dynamic intravenous contrast injection. Images reviewed with lung, soft tissu e and bone windows. Reconstructed coronal and sagittal MPR images reviewed. Delayed images for eval uation of the urinary system also acquired and evaluated. All images stored on PACS. All CT scanners at this facility use dose modulation, iterative reconstruction, and/or weight based d osing when appropriate to reduce radiation dose to as low as reasonably achievable (ALARA). [facility]: Dose Right [facility]: CareDose [facility]: Dose Right [facility]: Teradose 4D [facility]: [employer] RADIATION DOSE: CT Rad equipment meets quality standard of care and radiation dose reduction techniq ues were employed. CTDIvol: 4.4 - 4.5 mGy. DLP: 614 mGy-cm. . LIMITATIONS: None. FINDINGS: CHEST: LUNGS AND PLEURA: Stable 5 mm noncalcified subpleural nodule posterior left lower lobe image 40. Thi s likely a noncalcified granuloma. Lungs otherwise unremarkable. No pleural effusion. No pneumotho rax. HILAR AND MEDIASTINAL STRUCTURES: No identified masses or abnormal nodes. HEART AND VASCULAR STRUCTURES: No aneurysm or dissection. No central pulmonary emboli. No pericardi al effusion. HARDWARE: None. THYROID AND OTHER SOFT TISSUES: No masses. No adenopathy. BONES: No significant finding. OTHER: No other significant finding. ABDOMEN AND PELVIS: LIVER: Normal size. Left lobe liver metastatic nodule now measures 5.2 x 3.5 cm in size (was 4.7 x 3 cm on 07/08/2017). There is marked intra hepatic biliary ductal dilatation, more prominent than on 06/29/2017. Common he patic duct is dilated. Common bile duct is difficult to visualize at the level of the pancreatic hea d mass. SPLEEN: Normal size. No focal lesions. PANCREAS: Pancreatic head mass measures 3 x 3.2 cm in size (was 2.8 x 2.5 cm on 06/29/2017). Pancreat ic head mass significantly narrows or occludes the distal common duct. No peripancreatic inflammator y changes or fluid. Pancreatic duct nondilated. GALLBLADDER: Distended, 10 to 11 cm in length without pericholecystic fluid or gallstones ADRENAL GLANDS: No significant masses or asymmetry. RIGHT KIDNEY AND URETER: No solid masses. No significant calcification. No hydronephrosis or hydroure ter. LEFT KIDNEY AND URETER: No solid masses. No significant calcification. No hydronephrosis or hydrouret er. AORTA AND VESSELS: No aneurysm. No dissection. Renal arteries, SMA, celiac without stenosis. RETROPERITONEUM: No retroperitoneal adenopathy, hemorrhage or masses. BOWEL AND PERITONEAL CAVITY: No masses or inflammatory changes. No free fluid or peritoneal masses. APPENDIX: Normal. ABDOMINAL WALL: No masses. No hernias. PELVIS: No mass or free fluid. Normal bladder. Small postmenopausal female pelvic organs BONES: No significant or acute findings. OTHER: No other significant finding. IMPRESSION: No CT evidence of metastatic disease to the chest Increase in size of pancreatic head mass with further distention of the biliary tree. Increase in size of left lobe liver mass compared to previous studies. TECHNICAL DOCUMENTATION: JOB ID: [id number] Quality ID # [id number]: Final reports with documentation of one or more dose reduction techniques (e.g., Au tomated exposure control, adjustment of the mA and/or kV according to patient size, use of iterative reconstruction technique) 2010 [employer]- All Rights Reserved Reading location - IP/workstation name: [email or web address]
== END ==
LOC: RAD 09:01
PROVIDERS: ATTEND Internal Medicine
DX: C25.0 Malignant neoplasm of head of pancreas (principal)
CPT/HCPCS: 71260; 74177